=== PATIENT | male | born 1985 | race Two or more races ===

== ENCOUNTER 2020-03-31 22:07 | Emergency (ER) | payer SELFPAY ==
[~2020-03-31] VITALS: Ht 170.2 cm; Wt 68.0 kg
[2020-03-31 22:12] VITALS: BP 135/86
== END 2020-03-31 22:34 | disposition left against medical advice (07) ==
LOC: EDBD 22:07 → ER 22:08
DX: R53.1 Weakness (principal); Z53.21 Procedure and treatment not carried out due to patient leaving prior to being seen by health care provider